=== PATIENT | female | born 1980 | race Caucasian/White ===

== ENCOUNTER 2018-12-30 14:53 | Outpatient (CLI) | payer OTHER ==
[~2018-12-30 14:53] MED LIST: ONDA4TAB6 PO
== END 2018-12-30 23:59 | disposition home or self-care (01) ==
LOC: VAS 14:53
PROVIDERS: ATTEND Anesthesiology Pain Medicine
DX: R22.32 Localized swelling, mass and lump, left upper limb (principal); M51.36 Other intervertebral disc degeneration, lumbar region; M51.16 Intervertebral disc disorders with radiculopathy, lumbar region; Z87.891 Personal history of nicotine dependence
CPT/HCPCS: 93971

== ENCOUNTER 2019-10-02 18:53 | Emergency (ER) | payer OTHER ==
[~2019-10-02] VITALS: Ht 154.9 cm; Wt 76.5 kg
[2019-10-02 20:04] LABS: BASOPHILS % (AUTO) 0.5 % (0-1); EOSINOPHILS % (AUTO) 0.6 % (0-6); HEMATOCRIT 40.2 % (35.0-45.0); HEMOGLOBIN 13.4 g/dl (12.0-16.0); LYMPHOCYTES % (AUTO) 24.5 % (21-51); MEAN CORPUSCULAR HEMOGLOBIN 28.2 PG (27.0-31.0); MEAN CORPUSCULAR HGB CONC 33.5 g/dL (33.0-36.5); MEAN CORPUSCULAR VOLUME 84.4 FL (78-98); MEAN PLATELET VOLUME 9.6 FL (7.4-10.4); MONOCYTES # (AUTO) 0.6 X10'3 (0-0.9); NEUTROPHILS # (AUTO) 5.5 X10'3 (1.8-7.7); NEUTROPHILS % (AUTO) 67.4 % (42-75); PLATELET COUNT 277 X10'3 (140-440); RED BLOOD COUNT 4.76 X10'6 (4.20-5.60); RED CELL DISTRIBUTION WIDTH 14.5 % (11.5-14.5); WHITE BLOOD COUNT 8.2 X10'3 (4.5-11.0)
[2019-10-02 20:15] LABS: ALANINE AMINOTRANSFERASE 44 U/L (12-78); ALBUMIN 3.9 G/DL (3.4-5.0); ALBUMIN/GLOBULIN RATIO 1.1 (1.1-1.5); ALKALINE PHOSPHATASE 72 IU/L (46-116); ANION GAP 8 (8-16); ASPARTATE AMINO TRANSFERASE 20 U/L (10-37); BILIRUBIN,TOTAL 0.3 MG/DL (0.1-1.0); BLOOD UREA NITROGEN 12 MG/DL (7-18); BUN/CREATININE RATIO 18.5 (6.6-38.0); CALCIUM 9.2 MG/DL (8.5-10.1); CHLORIDE 103 MMOL/L (99-107); CREATININE 0.65 MG/DL (0.40-0.90); GLUCOSE 74 MG/DL (70-104); POTASSIUM 3.6 MMOL/L (3.5-5.1); SODIUM 138 MMOL/L (135-145); TOTAL CARBON DIOXIDE 26.9 MMOL/L (24-32); TOTAL PROTEIN 7.5 G/DL (6.4-8.2); eGFR > 90 ML/MIN
[2019-10-02 21:37] VITALS: BP 125/80
== END 2019-10-02 21:38 | disposition home or self-care (01) ==
LOC: ER 18:54
DX: R41.0 Disorientation, unspecified (principal); Z90.710 Acquired absence of both cervix and uterus; Z98.890 Other specified postprocedural states; Z79.899 Other long term (current) drug therapy
CPT/HCPCS: 36415; 74176; 80053; 83605; 85025; 99284

== ENCOUNTER 2019-11-29 14:46 | Outpatient (CLI) | payer OTHER | END 2019-11-29 23:59 | disposition home or self-care (01) | LOC: RAD 14:46 | PROVIDERS: ATTEND Orthopaedic Surgery Orthopaedic Surgery of the Spine | DX: M47.812 Spondylosis without myelopathy or radiculopathy, cervical region (principal); Z98.1 Arthrodesis status | CPT/HCPCS: 72040 ==

== ENCOUNTER 2020-02-14 12:24 | Outpatient (CLI) | payer OTHER | END 2020-02-14 23:59 | disposition home or self-care (01) | LOC: RAD 12:24 | PROVIDERS: ATTEND Orthopaedic Surgery Orthopaedic Surgery of the Spine | DX: M47.812 Spondylosis without myelopathy or radiculopathy, cervical region (principal); M43.22 Fusion of spine, cervical region | CPT/HCPCS: 72050 ==

== ENCOUNTER 2020-04-18 14:38 | Emergency (ER) | payer BC, OTHER ==
[~2020-04-18] VITALS: Ht 154.9 cm; Wt 75.0 kg
[2020-04-18 14:57] VITALS: BP 115/67
[2020-04-18] MEDS ORDERED: AMOX-117 PO (15:11)
[2020-04-18] MEDS ORDERED: FLUT16SP2 BOTHNARES (15:11)
[2020-04-18] MEDS ORDERED: METH4TAB3 PO (15:11)
== END 2020-04-18 15:19 | disposition home or self-care (01) ==
LOC: ER 14:39
DX: J01.10 Acute frontal sinusitis, unspecified (principal); R51 Headache; R09.81 Nasal congestion; Z90.710 Acquired absence of both cervix and uterus; Z98.890 Other specified postprocedural states; Z79.2 Long term (current) use of antibiotics; Z79.899 Other long term (current) drug therapy
CPT/HCPCS: 99283

== ENCOUNTER 2020-05-27 06:13 | Emergency (ER) | payer BC ==
[~2020-05-27] VITALS: Ht 154.9 cm; Wt 76.0 kg
[~2020-05-27 06:13] MED LIST changes: +FLUT16SP2 BOTHNARES; +METH4TAB3 PO
[2020-05-27 06:36] LABS: URINE HCG NEGATIVE (NEG)
[2020-05-27 06:43] LABS: CLARITY,URINE CLEAR (Clear); COLOR,URINE STRAW (Yellow); GLUCOSE, URINE NEGATIVE (Neg); KETONES,URINE NEGATIVE (Neg); LEUKOCYTE ESTERASE ,URINE NEGATIVE (Neg); NITRITES, URINE NEGATIVE (Neg); OCCULT BLOOD,URINE NEGATIVE (Neg); PROTEIN,URINE NEGATIVE (Neg); UROBILINOGEN,URINE 0.2 E.U/dL (0.2-1.0)
[2020-05-27 06:47] LABS: UA COLLECTION TYPE CLN CATCH MIDSTREAM
[2020-05-27 07:09] LABS: BASOPHILS % (AUTO) 0.7 % (0-1); EOSINOPHILS # (AUTO) 0.1 X10'3 (0-0.9); EOSINOPHILS % (AUTO) 1.4 % (0-6); HEMATOCRIT 39.4 % (35.0-45.0); LYMPHOCYTES # (AUTO) 1.9 X10'3 (1.1-4.8); LYMPHOCYTES % (AUTO) 33.4 % (21-51); MEAN CORPUSCULAR HEMOGLOBIN 28.3 PG (27.0-31.0); MEAN CORPUSCULAR VOLUME 85.6 FL (78-98); MEAN PLATELET VOLUME 9.6 FL (7.4-10.4); MONOCYTES # (AUTO) 0.4 X10'3 (0-0.9); MONOCYTES % (AUTO) 7.4 % (2-12); NEUTROPHILS # (AUTO) 3.3 X10'3 (1.8-7.7); NEUTROPHILS % (AUTO) 57.1 % (42-75); PLATELET COUNT 228 X10'3 (140-440); RED CELL DISTRIBUTION WIDTH 14.8 % (11.5-14.5); WHITE BLOOD COUNT 5.7 X10'3 (4.5-11.0)
[2020-05-27 07:17] LABS: ALANINE AMINOTRANSFERASE 35 U/L (12-78); ALBUMIN 3.7 G/DL (3.4-5.0); ALBUMIN/GLOBULIN RATIO 1.1 (1.1-1.5); ALKALINE PHOSPHATASE 55 IU/L (46-116); ANION GAP 9 (8-16); ASPARTATE AMINO TRANSFERASE 24 U/L (10-37); BILIRUBIN,TOTAL 0.2 MG/DL (0.1-1.0); BLOOD UREA NITROGEN 15 MG/DL (7-18); BUN/CREATININE RATIO 22.7 (6.6-38.0); CALCIUM 8.6 MG/DL (8.5-10.1); CHLORIDE 105 MMOL/L (99-107); CREATININE 0.66 MG/DL (0.40-0.90); GLUCOSE 97 MG/DL (70-104); LIPASE 156 U/L (73-393); POTASSIUM 3.7 MMOL/L (3.5-5.1); SODIUM 138 MMOL/L (135-145); TOTAL CARBON DIOXIDE 24.1 MMOL/L (24-32); eGFR > 90 ML/MIN
[2020-05-27] MEDS ORDERED: ondansetron/PF 4mg/2ml inj IV ONE (07:35)
[2020-05-27] MEDS ORDERED: pantoprazole 40 MG vial IV ONE (07:35)
[2020-05-27] MEDS ORDERED: normal saline 1000ML IV soln IVB ONE (07:35)
[2020-05-27] MEDS ORDERED: PANT-47 PO (09:36)
[2020-05-27 11:50] VITALS: BP 112/63
== END 2020-05-27 11:52 | disposition home or self-care (01) ==
LOC: ER 06:14 → EEVIPCON 06:14 → ER 11:52
DX: M79.18 Myalgia, other site (principal); R53.83 Other fatigue; R51 Headache; R10.13 Epigastric pain; R10.12 Left upper quadrant pain; R11.2 Nausea with vomiting, unspecified; R19.7 Diarrhea, unspecified; J45.909 Unspecified asthma, uncomplicated; Z90.710 Acquired absence of both cervix and uterus; Z98.890 Other specified postprocedural states; Z79.899 Other long term (current) drug therapy
CPT/HCPCS: 36415; 71045; 80053; 81003; 81025; 83605; 83690; 84443; 85025; 87040; 96374; 96375; 99284; C9113; J2405; J7030

== ENCOUNTER 2020-06-13 07:07 | Outpatient (CLI) | payer BC ==
[~2020-06-13 07:07] MED LIST changes: +PANT-47 PO
== END 2020-06-13 23:59 | disposition home or self-care (01) ==
LOC: 64 CT 07:07
PROVIDERS: ATTEND Family Medicine
DX: N20.0 Calculus of kidney (principal); K42.9 Umbilical hernia without obstruction or gangrene; M19.90 Unspecified osteoarthritis, unspecified site
CPT/HCPCS: 74176

== ENCOUNTER 2020-07-12 06:02 | Day surgery (SDC) | payer BC ==
[~2020-07-12] VITALS: Ht 154.9 cm; Wt 72.3 kg
[2020-07-12 06:07] VITALS: BP 114/76
[2020-07-12] MEDS ORDERED: MIDAZolam 5mg/5ml vial ONE (06:10)
[2020-07-12] MEDS ORDERED: fentaNYL/PF 50MCG/1 ML 2ML syringe ONE (06:10)
[2020-07-12] MEDS ORDERED: METO25TA6 PO (06:11)
[2020-07-12 08:51] VITALS: BP 112/44
[2020-07-12 09:00] VITALS: BP 112/72
[2020-07-12 09:10] VITALS: BP 120/50
[2020-07-12 09:20] VITALS: BP 114/62
== END 2020-07-12 09:30 | disposition home or self-care (01) ==
LOC: EEVIPCON 06:02 → GI LAB 06:02
PROVIDERS: ATTEND Internal Medicine Gastroenterology
DX: R10.84 Generalized abdominal pain (principal); K59.00 Constipation, unspecified; K52.9 Noninfective gastroenteritis and colitis, unspecified; J45.909 Unspecified asthma, uncomplicated; Z79.899 Other long term (current) drug therapy
CPT/HCPCS: 43239; 45380; 99152; 99153; J2250; J3010; J7040; A4620

== ENCOUNTER 2020-08-13 13:40 | Outpatient (CLI) | payer OTHER ==
[~2020-08-13 13:40] MED LIST changes: -FLUT16SP2 BOTHNARES; -METH4TAB3 PO; +METO25TA6 PO; -ONDA4TAB6 PO; -PANT-47 PO
== END 2020-08-13 23:59 | disposition home or self-care (01) ==
LOC: LAB 13:40 → EEVIPCON 13:40 → LAB 23:59
PROVIDERS: ATTEND Internal Medicine Infectious Disease
DX: Z20.828 Contact with and (suspected) exposure to other viral communicable diseases (principal)
CPT/HCPCS: 87635; C9803

== ENCOUNTER 2020-08-15 10:12 | Emergency (ER) | payer BC, OTHER ==
[~2020-08-15] VITALS: Ht 154.9 cm; Wt 70.9 kg
[2020-08-15] MEDS ORDERED: dexamethasone 4mg tablet PO ONE (11:25)
[2020-08-15] MEDS ORDERED: DEXAMETHASONE 6 MG TABLET PO ONE (11:30)
[2020-08-15 12:20] LABS: BASOPHILS % (AUTO) 0.5 % (0-1); EOSINOPHILS % (AUTO) 0.7 % (0-6); HEMATOCRIT 41.6 % (35.0-45.0); HEMOGLOBIN 13.4 g/dl (12.0-16.0); LYMPHOCYTES # (AUTO) 1.6 X10'3 (1.1-4.8); LYMPHOCYTES % (AUTO) 24.3 % (21-51); MEAN CORPUSCULAR HEMOGLOBIN 27.6 PG (27.0-31.0); MEAN CORPUSCULAR HGB CONC 32.3 g/dL (33.0-36.5); MEAN CORPUSCULAR VOLUME 85.5 FL (78-98); MEAN PLATELET VOLUME 9.1 FL (7.4-10.4); MONOCYTES # (AUTO) 0.5 X10'3 (0-0.9); MONOCYTES % (AUTO) 7.2 % (2-12); NEUTROPHILS # (AUTO) 4.3 X10'3 (1.8-7.7); NEUTROPHILS % (AUTO) 67.3 % (42-75); PLATELET COUNT 267 X10'3 (140-440); RED BLOOD COUNT 4.86 X10'6 (4.20-5.60); RED CELL DISTRIBUTION WIDTH 15.3 % (11.5-14.5); WHITE BLOOD COUNT 6.4 X10'3 (4.5-11.0)
[2020-08-15] MEDS ORDERED: AMOX-422 PO (12:32)
[2020-08-15] MEDS ORDERED: PRED20TA PO (12:32)
[2020-08-15 12:34] LABS: ALANINE AMINOTRANSFERASE 29 U/L (12-78); ALBUMIN 3.7 G/DL (3.4-5.0); ALBUMIN/GLOBULIN RATIO 0.9 (1.1-1.5); ALKALINE PHOSPHATASE 74 IU/L (46-116); ANION GAP 9 (8-16); ASPARTATE AMINO TRANSFERASE 27 U/L (10-37); BILIRUBIN,TOTAL 0.3 MG/DL (0.1-1.0); BLOOD UREA NITROGEN 8 MG/DL (7-18); BUN/CREATININE RATIO 13.3 (6.6-38.0); CALCIUM 8.9 MG/DL (8.5-10.1); CHLORIDE 104 MMOL/L (99-107); GLUCOSE 100 MG/DL (70-104); POTASSIUM 3.8 MMOL/L (3.5-5.1); SODIUM 140 MMOL/L (135-145); TOTAL CARBON DIOXIDE 26.8 MMOL/L (24-32); TOTAL PROTEIN 7.7 G/DL (6.4-8.2); eGFR > 90 ML/MIN
[2020-08-15 13:01] VITALS: BP 113/84
== END 2020-08-15 12:57 | disposition home or self-care (01) ==
LOC: ER 10:13 → EEVIPCON 10:13 → ER 12:57
DX: B34.9 Viral infection, unspecified (principal); J20.8 Acute bronchitis due to other specified organisms; J45.909 Unspecified asthma, uncomplicated; Z90.710 Acquired absence of both cervix and uterus; Z98.890 Other specified postprocedural states; Z79.899 Other long term (current) drug therapy
CPT/HCPCS: 36415; 71045; 80053; 85025; 87502; 87503; 99284; J8540

== ENCOUNTER 2020-08-23 13:17 | Emergency (ER) | payer BC ==
[~2020-08-23] VITALS: Ht 154.9 cm; Wt 70.9 kg
[~2020-08-23 13:17] MED LIST changes: +AMOX-422 PO
--- NOTE | 2020-08-23 15:29 | NUR ---
CEM Sahni at bedside.
[2020-08-23 16:18] VITALS: BP 114/81
== END 2020-08-23 16:21 | disposition home or self-care (01) ==
LOC: EEVIPCON 13:17 → ER 13:17
DX: R00.0 Tachycardia, unspecified (principal); R07.89 Other chest pain; J45.909 Unspecified asthma, uncomplicated; Z90.710 Acquired absence of both cervix and uterus; Z98.890 Other specified postprocedural states; Z79.2 Long term (current) use of antibiotics; Z79.899 Other long term (current) drug therapy
CPT/HCPCS: 93005; 99281; 99283

== ENCOUNTER 2020-10-30 10:19 | Outpatient (CLI) | payer BC ==
[~2020-10-30 10:19] MED LIST changes: -AMOX-422 PO
[2020-10-30 11:05] LABS: CHOLESTEROL 183 MG/DL (0-200); HDL CHOLESTEROL 62 MG/DL (35-60); LDL CHOLESTEROL 102 MG/DL (50-100); TRIGLYCERIDES 101 MG/DL (20-135)
== END 2020-10-30 23:59 | disposition home or self-care (01) ==
LOC: LAB 10:19
PROVIDERS: ATTEND Family Medicine
DX: Z00.00 Encounter for general adult medical examination without abnormal findings (principal)
CPT/HCPCS: 36415; 80061

== ENCOUNTER 2020-11-21 09:15 | Outpatient (CLI) | payer BC | END 2020-11-21 23:59 | disposition home or self-care (01) | LOC: 64 CT 09:15 | PROVIDERS: ATTEND Family Medicine | DX: N20.0 Calculus of kidney (principal); K42.9 Umbilical hernia without obstruction or gangrene | CPT/HCPCS: 74176 ==

== ENCOUNTER 2020-11-29 08:49 | Outpatient (CLI) | payer BC | END 2020-11-29 23:59 | disposition home or self-care (01) | LOC: RAD 08:49 | PROVIDERS: ATTEND Family Medicine | DX: M54.32 Sciatica, left side (principal) | CPT/HCPCS: 72148; C8919 ==

== ENCOUNTER 2020-12-20 11:26 | Outpatient (CLI) | payer BC ==
[~2020-12-20 11:26] MED LIST changes: +LOP25T PO; -METO25TA6 PO
== END 2020-12-20 23:59 | disposition home or self-care (01) ==
LOC: RAD 11:26
PROVIDERS: ATTEND Family Medicine
DX: N83.8 Other noninflammatory disorders of ovary, fallopian tube and broad ligament (principal)
CPT/HCPCS: 76856; 93976

== ENCOUNTER 2020-12-30 09:41 | Outpatient (CLI) | payer BC | END 2020-12-30 23:59 | disposition home or self-care (01) | LOC: LAB 09:41 | PROVIDERS: ATTEND Family Medicine | DX: J45.909 Unspecified asthma, uncomplicated (principal); Z83.49 Family history of other endocrine, nutritional and metabolic diseases | CPT/HCPCS: 36415; 84439; 84443; 86376 ==

== ENCOUNTER 2021-01-15 11:08 | Outpatient (CLI) | payer BC | END 2021-01-15 23:59 | disposition home or self-care (01) | LOC: RAD 11:08 | PROVIDERS: ATTEND Family Medicine | DX: H53.9 Unspecified visual disturbance (principal); R25.1 Tremor, unspecified; M62.81 Muscle weakness (generalized); Z83.49 Family history of other endocrine, nutritional and metabolic diseases | CPT/HCPCS: 70551 ==

== ENCOUNTER 2021-02-07 13:55 | Outpatient (CLI) | payer BC ==
[2021-02-07 14:40] LABS: ALANINE AMINOTRANSFERASE 22 U/L (12-78); ALBUMIN 3.5 G/DL (3.4-5.0); ALKALINE PHOSPHATASE 75 IU/L (46-116); ANION GAP 7 (8-16); ASPARTATE AMINO TRANSFERASE 12 U/L (10-37); BILIRUBIN,TOTAL 0.3 MG/DL (0.1-1.0); BLOOD UREA NITROGEN 12 MG/DL (7-18); BUN/CREATININE RATIO 18.2 (6.6-38.0); CHLORIDE 105 MMOL/L (99-107); CREATININE 0.66 MG/DL (0.40-0.90); GLUCOSE 79 MG/DL (70-104); SODIUM 141 MMOL/L (135-145); TOTAL CARBON DIOXIDE 28.6 MMOL/L (24-32); TOTAL PROTEIN 7.1 G/DL (6.4-8.2); eGFR > 90 ML/MIN
== END 2021-02-07 23:59 | disposition home or self-care (01) ==
LOC: LAB 13:55
PROVIDERS: ATTEND Internal Medicine Interventional Cardiology
DX: R06.02 Shortness of breath (principal)
CPT/HCPCS: 36415; 80053; 83880

== ENCOUNTER → 2021-04-11 | Outpatient (CLI) | payer BC ==
[2021-04-11 12:56] LABS: BASOPHILS % (AUTO) 0.5 % (0-1); EOSINOPHILS # (AUTO) 0.1 X10'3 (0-0.9); HEMATOCRIT 40.7 % (35.0-45.0); HEMOGLOBIN 13.3 g/dl (12.0-16.0); LYMPHOCYTES # (AUTO) 1.8 X10'3 (1.1-4.8); LYMPHOCYTES % (AUTO) 26.5 % (21-51); MEAN CORPUSCULAR HEMOGLOBIN 28.1 PG (27.0-31.0); MEAN CORPUSCULAR HGB CONC 32.7 g/dL (33.0-36.5); MEAN PLATELET VOLUME 9.2 FL (7.4-10.4); MONOCYTES # (AUTO) 0.5 X10'3 (0-0.9); MONOCYTES % (AUTO) 7.6 % (2-12); NEUTROPHILS # (AUTO) 4.5 X10'3 (1.8-7.7); NEUTROPHILS % (AUTO) 64.4 % (42-75); PLATELET COUNT 273 X10'3 (140-440); RED BLOOD COUNT 4.73 X10'6 (4.20-5.60); RED CELL DISTRIBUTION WIDTH 14.5 % (11.5-14.5); WHITE BLOOD COUNT 6.9 X10'3 (4.5-11.0)
[2021-04-11 13:38] LABS: HEMOGLOBIN A1C 5.6 % (4.5-6.2)
== END | disposition home or self-care (01) ==
LOC: RAD 09:50
DX: N95.1 Menopausal and female climacteric states (principal)
CPT/HCPCS: 36415; 82670; 83001; 83002; 83036; 84144; 84402; 84403; 84439; 84443; 84481; 85025

== ENCOUNTER 2021-05-30 07:57 | Outpatient (CLI) | payer BC | END 2021-05-30 23:59 | disposition home or self-care (01) | LOC: RAD 07:57 | PROVIDERS: ATTEND Surgery | DX: R10.31 Right lower quadrant pain (principal); Z90.710 Acquired absence of both cervix and uterus; Z90.721 Acquired absence of ovaries, unilateral | CPT/HCPCS: 76856; 93976 ==

== ENCOUNTER 2021-08-26 05:31 | Day surgery (SDC) | payer BC ==
[2021-08-19 15:50] LABS: BASOPHILS % (AUTO) 0.5 % (0-1); EOSINOPHILS # (AUTO) 0.1 X10'3 (0-0.9); EOSINOPHILS % (AUTO) 1.4 % (0-6); LYMPHOCYTES % (AUTO) 26.7 % (21-51); MEAN CORPUSCULAR HEMOGLOBIN 27.8 PG (27.0-31.0); MEAN CORPUSCULAR HGB CONC 33.1 g/dL (33.0-36.5); MEAN PLATELET VOLUME 9.3 FL (7.4-10.4); MONOCYTES # (AUTO) 0.6 X10'3 (0-0.9); MONOCYTES % (AUTO) 7.8 % (2-12); NEUTROPHILS # (AUTO) 4.7 X10'3 (1.8-7.7); NEUTROPHILS % (AUTO) 63.6 % (42-75); PRE OP HEMATOCRIT 39.8 % (35.0-45.0); PRE OP HEMOGLOBIN 13.2 g/dL (12.0-16.0); PRE OP PLATELET COUNT 303 X10'3 (140-440); RED BLOOD COUNT 4.74 X10'6 (4.20-5.60); RED CELL DISTRIBUTION WIDTH 14.3 % (11.5-14.5)
[2021-08-19 16:06] LABS: ALBUMIN 3.7 G/DL (3.4-5.0); ALKALINE PHOSPHATASE 64 IU/L (46-116); BLOOD UREA NITROGEN 15 MG/DL (7-18); BUN/CREATININE RATIO 22.1 (6.6-38.0); CHLORIDE 103 MMOL/L (99-107); CREATININE 0.68 MG/DL (0.40-0.90); PRE OP ALT 28 U/L (30-65); PRE OP ANION GAP 9 (8-16); PRE OP AST 13 U/L (10-37); PRE OP BILIRUB, TOTAL 0.3 MG/DL (0.0-1.0); PRE OP GLUCOSE 87 MG/DL (70-104); PRE OP POTASSIUM 3.7 MMOL/L (3.4-5.1); PRE OP SODIUM 139 MMOL/L (135-145); TOTAL CARBON DIOXIDE 26.9 MMOL/L (24-32); TOTAL PROTEIN 7.5 G/DL (6.4-8.2); eGFR > 90 ML/MIN
[~2021-08-26] VITALS: Ht 157.5 cm; Wt 76.7 kg
[2021-08-26] VITALS (8 sets, daily range): BP systolic 95–107; BP diastolic 54–66
[~2021-08-26 05:31] MED LIST changes: +DOCUMENT DATE & TIME OF BETA-BLOCKER PO ONE; -LOP25T PO; +MONT-40 PO; +PANT20TA18 PO; +PROP20TA6 PO; +SUCR1TAB PO; +albuterol 2.5 MG/3 ML nebule NEB ONE; +cefazolin/dext.iso 2gm/50ml IV ONE; +famotidine 20mg tablet PO ONE; +ringers solution, lacted 1,000 ML IV SCH
[2021-08-26] MEDS ORDERED: LIDOcaine 1% 30ml preserv. free vial ONE (06:43)
[2021-08-26] MEDS ORDERED: BUPIVAcaine/PF 2.5 mg/ml (0.25%) 30ml vial ONE (06:43)
[2021-08-26] MEDS ORDERED: fentaNYL/PF 50MCG/1 ML 2ML syringe ONE (08:13)
[2021-08-26] MEDS ORDERED: midazolam 1 mg/ML 2ml injection ONE (08:13)
[2021-08-26] MEDS ORDERED: propofol inj 20 ML IV ONE (08:14)
[2021-08-26] MEDS ORDERED: LIDOcaine 2% (20mg/ml) 5ml vial ONE (08:14)
[2021-08-26] MEDS ORDERED: dexamethasone sod phosphate 4mg/ml inj. ONE (08:22)
[2021-08-26] MEDS ORDERED: ondansetron/PF 4mg/2ml inj ONE (08:22)
[2021-08-26] MEDS ORDERED: BUPIVACAINE liposomal/PF 13.3 MG/ML vial IM ONE (08:30)
[2021-08-26] MEDS ORDERED: BUPIVAcaine/PF 2.5mg/ml (0.25%) 10ml vial IJ ONE (08:30)
[2021-08-26] MEDS ORDERED: proCHLORperazine 10 MG/2 ml inj IV PRN (08:40)
[2021-08-26] MEDS ORDERED: morphine 2 MG/ML inj. syringe IV PRN (08:40)
[2021-08-26] MEDS ORDERED: morphine 4 MG/ML inj SYRINge IV PRN (08:40)
[2021-08-26] MEDS ORDERED: ringers solution, lacted 1,000 ML IV SCH (08:40)
[2021-08-26] MEDS ORDERED: ondansetron/PF 4mg/2ml inj IV PRN (08:40)
[2021-08-26] MEDS ORDERED: meperidine/PF 25mg/ml syringe IV PRN ×2 (08:40)
[2021-08-26] MEDS ORDERED: meperidine/PF 25mg/ml syringe ONE (08:54)
[2021-08-26] MEDS ORDERED: acetaminophen 1,000mg/100ml IV 100 ML IV ONE (08:54)
[2021-08-26] MEDS ORDERED: rocuronium 10mg/ml inj IV ONE ×2 (09:52)
[2021-08-26] MEDS ORDERED: ketorolac trometh. 30mg/ml inj. ONE (09:53)
--- NOTE | 2021-08-26 10:12 | NUR ---
Received from OR via [facility] IN STABLE CONDITON , accompanied by Anesthesiologist and HEAVY EQUIPMENT DIESEL MECHANIC report given by HEAVY EQUIPMENT DIESEL MECHANIC AND Anesthesiolgist. Addendum: 08/26/21 at 1015 by Elicia Traylor RN Amended: Links added.
[2021-08-26] MEDS ORDERED: oxyCODONE/APAP 5-325mg tablet PO PRN (10:25)
[2021-08-26] MEDS: meperidine/PF 25mg/ml syringe IV PRN ×2 (10:36→10:44)
--- NOTE | 2021-08-26 11:32 | NUR ---
PATIENT DISCHARGED FROM PACU IN STABLE CONDITION AFTER WRITTEN AND VERBAL DISCHARGE INSTRUCTIONS GIVEN. PATIENT GAVE VERBAL UNDERSTANDING OF INSTRUCTIONS. PATIENT LEFT FACILITY VIA WHEELCHAIR WITH RN. Addendum: 08/26/21 at 1201 by Elicia Traylor RN Amended: Links added.
== END 2021-08-26 11:32 | disposition home or self-care (01) ==
LOC: PAS 05:31
PROVIDERS: ATTEND Surgery
DX: K42.9 Umbilical hernia without obstruction or gangrene (principal); K66.0 Peritoneal adhesions (postprocedural) (postinfection); E66.9 Obesity, unspecified; Z68.30 Body mass index [BMI] 30.0-30.9, adult; J45.909 Unspecified asthma, uncomplicated; G43.909 Migraine, unspecified, not intractable, without status migrainosus; K21.9 Gastro-esophageal reflux disease without esophagitis; Z88.7 Allergy status to serum and vaccine; Z91.040 Latex allergy status; Z79.899 Other long term (current) drug therapy; Z98.890 Other specified postprocedural states; Z98.1 Arthrodesis status; Z90.710 Acquired absence of both cervix and uterus; Z87.891 Personal history of nicotine dependence
CPT/HCPCS: 36415; 49652; 64488; 80053; 82948; 85025; 93005; C1781; C9290; J0131; J0690; J1100; J1885; J2175; J2250; J2405; J2704; J3010; J3490; J7030; J7120; S2900; U0003; U0005; Z7506; Z7508; Z7512; A4215; A4618

== ENCOUNTER 2021-10-03 16:12 | Emergency (ER) | payer BC ==
[~2021-10-03] VITALS: Ht 154.9 cm; Wt 75.9 kg
[~2021-10-03 16:12] MED LIST changes: -DOCUMENT DATE & TIME OF BETA-BLOCKER PO ONE; -albuterol 2.5 MG/3 ML nebule NEB ONE; -cefazolin/dext.iso 2gm/50ml IV ONE; -famotidine 20mg tablet PO ONE; -ringers solution, lacted 1,000 ML IV SCH
[2021-10-03 16:27] VITALS: BP 127/91
[2021-10-03 17:30] LABS: BASOPHILS % (AUTO) 0.4 % (0-1); EOSINOPHILS # (AUTO) 0.1 X10'3 (0-0.9); EOSINOPHILS % (AUTO) 1.4 % (0-6); HEMATOCRIT 38.1 % (35.0-45.0); HEMOGLOBIN 12.8 g/dl (12.0-16.0); LYMPHOCYTES # (AUTO) 2.3 X10'3 (1.1-4.8); LYMPHOCYTES % (AUTO) 28.5 % (21-51); MEAN CORPUSCULAR HEMOGLOBIN 27.6 PG (27.0-31.0); MEAN CORPUSCULAR HGB CONC 33.6 g/dL (33.0-36.5); MEAN CORPUSCULAR VOLUME 82.3 FL (78-98); MEAN PLATELET VOLUME 9.1 FL (7.4-10.4); MONOCYTES # (AUTO) 0.6 X10'3 (0-0.9); MONOCYTES % (AUTO) 7.4 % (2-12); NEUTROPHILS % (AUTO) 62.3 % (42-75); PLATELET COUNT 276 X10'3 (140-440); RED BLOOD COUNT 4.63 X10'6 (4.20-5.60); RED CELL DISTRIBUTION WIDTH 14.7 % (11.5-14.5); WHITE BLOOD COUNT 8.1 X10'3 (4.5-11.0)
[2021-10-03 17:40] LABS: ALANINE AMINOTRANSFERASE 29 U/L (12-78); ALBUMIN 3.8 G/DL (3.4-5.0); ALBUMIN/GLOBULIN RATIO 1.1 (1.1-1.5); ALKALINE PHOSPHATASE 75 IU/L (46-116); ANION GAP 8 (8-16); ASPARTATE AMINO TRANSFERASE 13 U/L (10-37); BILIRUBIN,TOTAL 0.2 MG/DL (0.1-1.0); BLOOD UREA NITROGEN 15 MG/DL (7-18); CALCIUM 9.1 MG/DL (8.5-10.1); CHLORIDE 103 MMOL/L (99-107); GLUCOSE 90 MG/DL (70-104); LIPASE 94 U/L (73-393); SODIUM 137 MMOL/L (135-145); TOTAL CARBON DIOXIDE 26.3 MMOL/L (24-32); TOTAL PROTEIN 7.4 G/DL (6.4-8.2); eGFR > 90 ML/MIN
[2021-10-03 18:43] LABS: URINE HCG NEGATIVE (NEG)
[2021-10-03 18:49] LABS: CLARITY,URINE CLEAR (Clear); COLOR,URINE YELLOW (Yellow); GLUCOSE, URINE NEGATIVE (Neg); KETONES,URINE NEGATIVE (Neg); LEUKOCYTE ESTERASE ,URINE NEGATIVE (Neg); NITRITES, URINE NEGATIVE (Neg); OCCULT BLOOD,URINE NEGATIVE (Neg); PH,URINE 7.5 (4.8-8.0); PROTEIN,URINE NEGATIVE (Neg); UROBILINOGEN,URINE 0.2 E.U/dL (0.2-1.0)
[2021-10-03 18:50] LABS: UA COLLECTION TYPE CLN CATCH MIDSTREAM
== END 2021-10-03 19:31 | disposition home or self-care (01) ==
LOC: ER 16:13
DX: R10.11 Right upper quadrant pain (principal); J45.909 Unspecified asthma, uncomplicated; Z90.710 Acquired absence of both cervix and uterus; Z98.890 Other specified postprocedural states; Z91.040 Latex allergy status
CPT/HCPCS: 36415; 76700; 80053; 81003; 81025; 83690; 85025; 99284

== ENCOUNTER 2021-12-11 09:10 | Outpatient (CLI) | payer BC ==
[2021-12-11 10:06] LABS: CLARITY,URINE CLOUDY (Clear); COLOR,URINE YELLOW (Yellow); GLUCOSE, URINE NEGATIVE (Neg); KETONES,URINE NEGATIVE (Neg); LEUKOCYTE ESTERASE ,URINE NEGATIVE (Neg); NITRITES, URINE NEGATIVE (Neg); OCCULT BLOOD,URINE NEGATIVE (Neg); PROTEIN,URINE NEGATIVE (Neg); UROBILINOGEN,URINE 0.2 E.U/dL (0.2-1.0)
[2021-12-11 10:07] LABS: UA COLLECTION TYPE NON-SPECIFIED
[2021-12-11 10:16] LABS: BACTERIA,URINE 1+ /HPF (Neg); RBC,URINE 0-2 /HPF (0-2); SQUAMOUS EPITHELIAL CELL,UR FEW /LPF (FEW)
[2021-12-11 10:17] LABS: WBC,URINE 0-4 /HPF (0-4)
== END 2021-12-11 23:59 | disposition home or self-care (01) ==
LOC: LAB 09:10
PROVIDERS: ATTEND Family Medicine
DX: R33.9 Retention of urine, unspecified (principal)
CPT/HCPCS: 81001

== ENCOUNTER 2022-01-23 01:06 | Emergency (ER) | payer BC ==
[~2022-01-23] VITALS: Ht 152.4 cm; Wt 76.4 kg
[2022-01-23] MEDS ORDERED: ondansetron/PF 4mg/2ml inj IV ONE (01:35)
[2022-01-23] MEDS ORDERED: ketorolac trometh. 30mg/ml inj. IV ONE (01:35)
[2022-01-23] MEDS ORDERED: morphine 4 MG/ML inj SYRINge IV ONE ×2 (01:35→04:25)
[2022-01-23] MEDS ORDERED: normal saline 1000ML IV soln IVB ONE (01:35)
[2022-01-23] MEDS ORDERED: LORazepam 2 mg/ml vial IV ONE (01:40)
[2022-01-23 02:12] LABS: BASOPHILS % (AUTO) 0.5 % (0-1); EOSINOPHILS # (AUTO) 0.1 X10'3 (0-0.9); EOSINOPHILS % (AUTO) 1.1 % (0-6); HEMATOCRIT 37.8 % (35.0-45.0); HEMOGLOBIN 12.1 g/dl (12.0-16.0); LYMPHOCYTES # (AUTO) 1.7 X10'3 (1.1-4.8); LYMPHOCYTES % (AUTO) 25.7 % (21-51); MEAN CORPUSCULAR VOLUME 84.3 FL (78-98); MEAN PLATELET VOLUME 9.4 FL (7.4-10.4); MONOCYTES # (AUTO) 0.6 X10'3 (0-0.9); MONOCYTES % (AUTO) 9.4 % (2-12); NEUTROPHILS # (AUTO) 4.1 X10'3 (1.8-7.7); NEUTROPHILS % (AUTO) 63.3 % (42-75); PLATELET COUNT 246 X10'3 (140-440); RED BLOOD COUNT 4.48 X10'6 (4.20-5.60); RED CELL DISTRIBUTION WIDTH 15.1 % (11.5-14.5); WHITE BLOOD COUNT 6.5 X10'3 (4.5-11.0)
[2022-01-23 02:23] LABS: ALANINE AMINOTRANSFERASE 22 U/L (12-78); ALBUMIN 3.5 G/DL (3.4-5.0); ALKALINE PHOSPHATASE 65 IU/L (46-116); ANION GAP 6 (8-16); ASPARTATE AMINO TRANSFERASE 11 U/L (10-37); BILIRUBIN,TOTAL 0.1 MG/DL (0.1-1.0); BLOOD UREA NITROGEN 18 MG/DL (7-18); BUN/CREATININE RATIO 20.7 (6.6-38.0); CALCIUM 8.7 MG/DL (8.5-10.1); CHLORIDE 107 MMOL/L (99-107); CREATININE 0.87 MG/DL (0.40-0.90); GLUCOSE 114 MG/DL (70-104); POTASSIUM 4.1 MMOL/L (3.5-5.1); SODIUM 140 MMOL/L (135-145); TOTAL CARBON DIOXIDE 26.6 MMOL/L (24-32); TOTAL PROTEIN 6.9 G/DL (6.4-8.2); eGFR 72 ML/MIN
[2022-01-23 02:29] LABS: BETA HCG,QUANTITATIVE 3 mIU/ml; LIPASE 78 U/L (73-393)
[2022-01-23] MEDS ORDERED: HYDROcodone/acetaminophen 5mg/325mg tablet PO ONE (02:55)
--- NOTE | 2022-01-23 03:16 | NUR ---
Pt to CT
[2022-01-23] MEDS ORDERED: metoclopramide 5 mg/ml inj IV ONE (04:25)
[2022-01-23] MEDS ORDERED: normal saline 1000ml 1,000 ML IV ONE (05:25)
[2022-01-23] MEDS ORDERED: ONDA8TAB13 PO (05:52)
[2022-01-23] MEDS ORDERED: HYDR-3965 PO (05:52)
--- NOTE | 2022-01-23 06:37 | NUR ---
DR BAIRES AT BEDSIDE.
[2022-01-23] MEDS ORDERED: NAPR-56 PO (06:42)
--- NOTE | 2022-01-23 06:51 | NUR ---
LEANN IZAGUIRRE STATED NO URINE NEEDED ,JUST NEED STRAINER TO CATCH KIDNEY STONE AND GIVE IV TYLENOL.
[2022-01-23 07:15] VITALS: BP 96/63
[2022-01-23] MEDS ORDERED: acetaminophen 1,000mg/100ml IV 100 ML IV ONE (08:00)
== END 2022-01-23 07:32 | disposition home or self-care (01) ==
LOC: ER 01:07
DX: N20.0 Calculus of kidney (principal); J45.909 Unspecified asthma, uncomplicated; Z91.040 Latex allergy status; Z79.899 Other long term (current) drug therapy; Z90.49 Acquired absence of other specified parts of digestive tract
CPT/HCPCS: 36415; 74176; 80053; 83690; 84702; 85025; 93005; 96361; 96374; 96375; 96376; 99285; J1885; J2060; J2270; J2405; J2765; J7030

== ENCOUNTER 2022-07-20 18:36 | Emergency (ER) | payer OTHER ==
[~2022-07-20] VITALS: Ht 157.5 cm; Wt 77.3 kg
[~2022-07-20 18:36] MED LIST changes: +NAPR-56 PO; +ONDA8TAB13 PO
[2022-07-20 18:50] VITALS: BP 124/74
[2022-07-20] MEDS ORDERED: ketorolac trometh. 30mg/ml inj. IM ONE (20:40)
== END 2022-07-20 21:37 | disposition home or self-care (01) ==
LOC: ER 18:36
DX: S16.1XXA Strain of muscle, fascia and tendon at neck level, initial encounter (principal); J45.909 Unspecified asthma, uncomplicated; Z90.49 Acquired absence of other specified parts of digestive tract; Z91.040 Latex allergy status; V87.7XXA Person injured in collision between other specified motor vehicles (traffic), initial encounter; Y93.89 Activity, other specified; Y92.89 Other specified places as the place of occurrence of the external cause; Y99.8 Other external cause status
CPT/HCPCS: 72040; 96372; 99283; J1885

== ENCOUNTER 2022-10-23 08:13 | Outpatient (CLI) | payer OTHER ==
[2022-10-23] MEDS ORDERED: iohexol 300mg/ml 100ml inj. ONE (08:36)
== END 2022-10-23 23:59 | disposition home or self-care (01) ==
LOC: RAD 08:13
PROVIDERS: ATTEND Family Medicine
DX: K76.89 Other specified diseases of liver (principal); R59.1 Generalized enlarged lymph nodes
CPT/HCPCS: 71260; J3490; Q9967